=== PATIENT | female | born 1960 | race Caucasian/White ===

== ENCOUNTER 2017-03-25 06:55 | Inpatient (IN) | payer MEDICARE, SELFPAY ==
[2017-03-19 10:14] LABS: WBC (NOT ORDERED) (RFLEX) 0 (0-5)
[2017-03-19 10:29] LABS: BASOPHILS 0.4 %; BASOPHILS ABSOLUTE 0.03 10/3/uL (0.0-0.16); EOSINOPHILS 1.9 %; EOSINOPHILS ABSOLUTE 0.13 10/3/uL (0.0-0.53); HEMATOCRIT 45.2 % (36.0-48.0); HEMOGLOBIN 14.5 g/dL (12.0-16.0); IMMATURE GRANULOCYTES 0.3 %; IMMATURE GRANULOCYTES ABSOLUTE 0.02 10/3/uL (0.0-0.11); LYMPHOCYTES 26.4 %; MANUAL DIFF NO %; MEAN CORPUS HGB CONC 32.1 g/dL (32.0-36.0); MEAN CORPUSCULAR HEMOGLOB 27.6 pg (26.0-34.0); MEAN CORPUSCULAR VOLUME 85.9 fL (80-100); MONOCYTES 6.6 %; MONOCYTES ABSOLUTE 0.45 10/3/uL (0.21-1.20); NEUTROPHILS 64.4 %; PLATELET COUNT 172 10/3/uL (150-400); RBC DISTRIBUTION WIDTH 15.7 % (12.0-16.0); RED CELL COUNT 5.26 10/6/uL (4.0-5.6); WHITE BLOOD CELLS 6.8 10/3/uL (4.5-10.5)
[2017-03-19 10:43] LABS: A/G RATIO 0.9 (0.7-1.9); ALBUMIN 3.5 G/DL (3.5-5.0); ALKALINE PHOSPHATASE 129 U/L (45-117); BUN (BLOOD UREA NITROGEN) 13 MG/DL (6-23); CALCIUM, SERUM 8.9 MG/DL (8.5-10.4); CHLORIDE, SERUM 103 MMOL/L (96-112); CO2 (CARBON DIOXIDE) 32 MMOL/L (24-34); CREATININE 0.66 MG/DL (0.55-1.02); GFR AFRICAN AMERICAN 112 ML/MIN (>=60); GFR NON AFRICAN AMERICAN 97 ML/MIN (>=60); GLOBULIN 3.8 G/DL (2.5-4.1); GLUCOSE, SERUM 90 MG/DL (60-99); SGOT(AST) 14 U/L (5-40); SGPT(ALT) 14 U/L (5-65); SODIUM, SERUM 139 MMOL/L (135-148); TOTAL BILIRUBIN 0.3 MG/DL (0-1.2); TOTAL PROTEIN 7.3 G/DL (6.0-8.5)
[2017-03-19 10:54] LABS: ASCORBIC ACID (UR NOT ORDER) NEG (NEG); BILIRUBIN, URINE NEGATIVE (NEG); KETONE, URINE NEGATIVE (NEG); LEUKOCYTE ESTERASE(NOT OR NEG (NEG)
--- NOTE | ~2017-03-25 | OP ---
Record Of Operation [facility] [address] [place]. [address] NAME: LISA KENNEDY : 56 STATUS : ADM IN PAT#: [id number] AGE: 57 ADM/REG DATE : 03/25/17 MR#: [id number] REPORT SERV DATE: 03/26/17 DICTATED BY: ANUSHA NARVAEZ JR. DATE: 03/25/17 REPORT STATUS : Draft TRANSCRIBED BY: MODAna DATE: 03/25/17 DATE OF PROCEDURE: 03/25/2017 PREOPERATIVE DIAGNOSES: Chronic obstructive pulmonary disease with persistent tobacco abuse, history of blunt trauma, anxiety disorder, depression, type 2 nak-bgaznek-tjzdiyrlt diabetes mellitus, aortopulmonary window mass of uncertain etiology. POSTOPERATIVE DIAGNOSIS: Likely benign granulomatous disease. No evidence of malignancy on frozen section. OPERATION: Left bronchoscopy, left thoracoscopy with lysis of adhesions, incisional biopsy of left AP window mediastinal mass, intercostal nerve block. SURGEON: Anusha Narvaez M.D. RESIDENT SURGEON: Rufus Escalera MD CAREER COUNSELOR: MIGUEL Downs FINDINGS: The patient was noted to have no endobronchial abnormalities. Mucous secretions were evacuated. She had abundant secretions. On the chest wall, she had a palpable dehiscence of her ribs with a likely hernia. This is likely from blunt trauma. Getting into the chest was difficult given the severe adhesions. It took us just an hour and a half to take down the adhesions where we could get to the mediastinal region. We could not take down all the adhesions. We got enough taken down to be able to navigate where we need to get to. The mass was palpable in the AP window region, sitting on the aortic arch. The phrenic nerve also ran right over this mass. There was a lot of surrounding inflammation in the tissues. The mass was extremely firm and appeared more likely a granulomatous lesion. There is nothing suspicious clinically. On frozen section, there were some unusual looking histiocytes or atypical cells, but certainly nothing that we could call malignant. Additional material was obtained. This material was also sent for cultures. Final pathology is pending. The mass was not able to be excised, and given the phrenic nerve was running right over the top of this mass and involved in the surrounding inflammatory tissue, we were careful to avoid injuring the nerve. Other than the severe adhesions in the chest wall defect, there were no other abnormalities noted. DETAILS OF OPERATION: After adequate general anesthesia, the patient was intubated. Bronchoscopy was performed, noting thick mucous secretions. These were evacuated. The airway was normal. There were no endobronchial lesions. A left-sided double-lumen endotracheal tube was then placed. The patient then positioned in the right lateral decubitus position where the left chest was prepped and draped in routine sterile fashion. A small incision was made overlying the lower intercostal space. We immediately rounded with severe adhesions. It took us an extensive amount of time to take down the adhesions. We could even get a workable space within the chest cavity. We were eventually able to get to the 2nd trocar incision and eventually to the AP window region in the mediastinum. This took at least an hour and a half to take down the adhesions and be able to expose, where we Record Of Operation [address] [address] NAME: LISA KENNEDY : 56 STATUS : ADM IN [facility]#: [id number] AGE: 57 ADM/REG DATE : 03/25/17 MR#: [id number] REPORT SERV DATE: 03/26/17 DICTATED BY: ANUSHA NARVAEZ JR. DATE: 03/25/17 REPORT STATUS : Draft TRANSCRIBED BY: NANI DATE: 03/25/17 needed to get to the mass. The mass was extremely firm. We used an incisional biopsy technique to remove tissue from multiple different quadrants of the mass. We tried our best to avoid any extra tension or to avoid any tension or injury to the phrenic nerve. The mass was extremely hard. There was some abnormal histiocyte looking cells that possibly could be metastatic, could also represent a metastatic cancer. We were leaning toward this being a benign or granulomatous process. Additional material sent for culture and cell mart. We got to the point we could not excise the mass nor could we do any further without any further biopsies without injuring the phrenic nerve. Adequate hemostasis was obtained. Surgicel was placed in the biopsy site. A 28-[place] chest tube was tunneled into this region. The lung was reinflated. The trocar sites were closed with running Vicryl sutures. The skin was closed with running monofilament suture. A Dermabond dressing was applied. The procedure was terminated at this point. The patient tolerated the procedure well and taken back to recovery room in stable condition. ROMINA/NANI Anusha Narvaez Jr., M.D. / [id number] CC: Dylon Orellana Jr., M.D. Nathan Mull IV, M.D.
[~2017-03-25 06:55] MED LIST: ASA5GR PO; ATV.5 PO; BUSPAR15 M1 PO; CELEXA20 PO; ESTRADIOL2 MG PO; FLEX PO; FORTAMET500 MG PO; L20 PO; LEVSINTAB PO; NEUR300 PO; POTASSIUM GLUCO99 MG PO; PROTONIX PO; REQUIP5 PO; STIOLTO RESPIMAT4 GM INH; ULTRAM50 PO
[2017-03-26 06:32] LABS: BASOPHILS 0 %; EOSINOPHILS 0 %; HEMATOCRIT 41.6 % (36.0-48.0); IMMATURE GRANULOCYTES 0.2 %; IMMATURE GRANULOCYTES ABSOLUTE 0.02 10/3/uL (0.0-0.11); LYMPHOCYTES 8.3 %; LYMPHOCYTES ABSOLUTE 0.76 10/3/uL (0.67-4.30); MEAN CORPUS HGB CONC 31.3 g/dL (32.0-36.0); MEAN CORPUSCULAR HEMOGLOB 26.9 pg (26.0-34.0); MEAN CORPUSCULAR VOLUME 86.1 fL (80-100); MEAN PLATELET VOLUME 10.4 fL (9.2-13.0); MONOCYTES 6.1 %; MONOCYTES ABSOLUTE 0.56 10/3/uL (0.21-1.20); NEUTROPHILS 85.4 %; PLATELET COUNT 182 10/3/uL (150-400); RBC DISTRIBUTION WIDTH 15.1 % (12.0-16.0); RED CELL COUNT 4.83 10/6/uL (4.0-5.6); WHITE BLOOD CELLS 9.1 10/3/uL (4.5-10.5)
[2017-03-26 06:34] LABS: MANUAL DIFF NO %
[2017-03-26 06:41] LABS: CALCIUM, SERUM 8.2 MG/DL (8.5-10.4); CHLORIDE, SERUM 107 MMOL/L (96-112); CO2 (CARBON DIOXIDE) 29 MMOL/L (24-34); CREATININE 0.67 MG/DL (0.55-1.02); GFR AFRICAN AMERICAN 112 ML/MIN (>=60); GFR NON AFRICAN AMERICAN 96 ML/MIN (>=60); POTASSIUM, SERUM 4.4 MMOL/L (3.5-5.3); SODIUM, SERUM 140 MMOL/L (135-148)
[2017-03-26 06:42] LABS: BUN (BLOOD UREA NITROGEN) 9 MG/DL (6-23); GLUCOSE, SERUM 137 MG/DL (60-99)
[2017-03-26] MEDS ORDERED: MIRALAX POWDER1 PKT PO (10:19)
[2017-03-26] MEDS ORDERED: PCET PO (10:19)
== END 2017-03-26 14:51 | disposition home or self-care (01) | DRG 163 ==
LOC: SDC/OF 06:55 → 5NO 16:02
PROVIDERS: Thoracic Surgery (Cardiothoracic Vascular Surgery)
PROC: 0BNL4ZZ Release Left Lung, Percutaneous Endoscopic Approach (ICD-10-PCS; 2017-03-25)
PROC: 3E0T3BZ Introduction of Anesthetic Agent into Peripheral Nerves and Plexi, Percutaneous Approach (ICD-10-PCS; 2017-03-25)
PROC: 0WBC4ZX Excision of Mediastinum, Percutaneous Endoscopic Approach, Diagnostic (ICD-10-PCS; principal; 2017-03-25 08:45)
DX: J84.10 Pulmonary fibrosis, unspecified (principal); J98.59 Other diseases of mediastinum, not elsewhere classified; J44.9 Chronic obstructive pulmonary disease, unspecified; E11.9 Type 2 diabetes mellitus without complications
CPT/HCPCS: 36415; 71020; 80048; 80053; 81001; 82962; 83036; 85025; 85610; 86850; 86900; 86901; 87015; 87070; 87075; 87102; 87116; 87205; 87641; 88305; 88307; 88331; 88332; 88341; 88342; 93005; 94640; A9270-GY; J0690; J2250; J2300; J2370; J2405; J2710; J2795; J3010